=== PATIENT | female | born 1970 | race African-American/Black ===

== ENCOUNTER 2016-11-22 19:37 | Emergency (ER) | payer MEDICAID ==
[2016-11-22 19:39] VITALS: BP 181/97; PULSE 84; RESP 18; TEMP 98.4; O2SAT 99
--- NOTE | 2016-11-22 21:52 | PD ---
HPI Chief Complaint: Hypertension Time Seen by Provider: 21:12 Travel History International Travel<30 days: No Contact w/Intl Traveler<30days: No Traveled to known affect area: No History of Present Illness HPI The patient is a 46 year old female who presents to the [facility] emergency department with a history of reportedly not feeling well over the last couple of days, however this escalated yesterday. The patient reports that she felt lightheaded, nauseated, and had a near syncopal event. She reports that the symptoms were similar to when she was anemic with a previously. She went to the [facility] emergency department yesterday and was diagnosed with hypertension. She reports that she's given a prescription for amlodipine 5 mg. She has made an appointment with a new primary care physician, Dr. Richardson which is scheduled for next Tuesday. She reports that throughout the day today her blood pressure has continued to creep up. She reports that her symptoms have continued. She reports having pain in her left arm and neck with palpitations since yesterday. She has also been having nausea. She denies having any vomiting. She reports having a left lower quadrant abdominal pain that began since arriving in the emergency department earlier this evening. Otherwise on review of systems, the patient denies any recent fevers, cough, congestion, chest pain, shortness of breath, diarrhea, urinary symptoms, or neurologic symptoms. LMP: End October 2016. [facility] Past Medical History Narrative Medical The patient's past medical history is reportedly none. She was diagnosed as having hypertension yesterday in the emergency department. Cardiovascular Problems: Yes Diminished Hearing: No : 4 Para: 2 : 1 Past Surgical History Narrative Surgical The patient's past surgical history is reportedly none Social History Alcohol Use: No Tobacco Use: No Substance Use: No Allergies-Medications (Allergen,Severity, Reaction): Coded Allergies: Opioids - Morphine Analogues (Unverified Adverse Reaction, Mild, UPSET STOMACH, 11/22/16) Opioids-Meperidine and Related (Unverified Adverse Reaction, Mild, UPSET STOMACH, 11/22/16) Opioids-Methadone and Related (Unverified Adverse Reaction, Mild, UPSET STOMACH, 11/22/16) Reported Meds & Prescriptions Reported Meds & Active Scripts Active No Active Prescriptions or Reported Medications Narrative Medication Amlodipine 5 mg daily Review of Systems Except as stated in HPI: all other systems reviewed are Neg General / Constitutional: No: Fever Eyes: No: Visual changes HENT: Positive: Lightheadedness, No: Headaches, Rhinorrhea, Congestion Cardiovascular: No: Chest Pain or Discomfort, Dyspnea on exertion Respiratory: No: Cough, Shortness of Breath Gastrointestinal: Positive: Nausea, No: Vomiting, Diarrhea, Abdominal Pain, Changes in Bowel Habits, Indigestion, Loss of Appetite Genitourinary: No: Dysuria Musculoskeletal: No: Pain Skin: No Rash Neurologic: Positive: Dizziness, No: Weakness, Focal Abnormalities, Change in Mentation, Slurred Speech, Sensory Disturbance Psychiatric: No: Depression Endocrine: No: Polydipsia Hematologic/Lymphatic: No: Easy Bruising Physical Exam Narrative General: The patient is a well-developed well-nourished female in no acute distress. Head and Neck exam: Head is normocephalic atraumatic. Eyes: EOMI, pupils are equal round and reactive to light. Nose: Midline septum with pink mucous membranes Mouth: Dentition unremarkable. Moist mucus membranes. Posterior oropharynx is not erythematous. No tonsillar hypertrophy. Uvula midline. Airway patent. Neck: No palpable lymphadenopathy. No nuchal rigidity. No thyromegaly. Cardiovascular: Regular rate and rhythm without murmurs, gallops, or rubs. Lungs: Clear to auscultation bilaterally. No wheezes, rhonchi, or rales. Abdomen: Soft, without tenderness to palpation in all 4 quadrants of the abdomen. No guarding, rebound, or rigidity. Normal bowel sounds are audible. No tenderness on palpation of McBurney's point. Negative Lang's sign. Extremities: No clubbing, cyanosis, or edema. 2+ pulses in all 4 extremities. No calf tenderness on palpation. Back: No spinous process tenderness to palpation. No costovertebral angle tenderness to palpation. Neurologic Exam: Cranial nerves 2-12 were intact on exam. Strength is 5/5 in all 4 extremities. No sensory deficits noted. No dysdiadochokinesis. Good finger to nose and Heel to stephen bilaterally. Skin Exam: No rash noted. Intact skin that is warm and dry. Data Data Last Documented VS Vital Signs Date Time Temp Pulse Resp B/P (MAP) Pulse Ox O2 Delivery O2 Flow Rate FiO2 11/22/16 22:05 100 Room Air 11/22/16 19:39 98.4 84 18 Orders Orders Electrocardiogram (11/22/16 21:35) Complete Blood Count With Diff (11/22/16 21:35) Comprehensive Metabolic Panel (11/22/16 21:35) Creatine Kinase (Cpk) (11/22/16 21:35) Ckmb (Isoenzyme) Profile (11/22/16 21:35) Troponin I (11/22/16 21:35) B-Type Natriuretic Peptide (11/22/16 21:35) Prothrombin Time / Inr (Pt) (11/22/16 21:35) Act Partial Throm Time (Ptt) (11/22/16 21:35) Lipase (11/22/16 21:35) Urinalysis - C+S If Indicated (11/22/16 21:35) Magnesium (Mg) (11/22/16 21:35) Chest, Single Ap (11/22/16 21:35) Ct Brain W/O Iv Contrast(Rout) (11/22/16 21:35) Iv Access Insert/Monitor (11/22/16 21:35) Ecg Monitoring (11/22/16 21:35) Oximetry (11/22/16 21:35) Ed Urine Pregnancytest Poc (11/22/16 21:35) Ondansetron Inj (Zofran Inj) (11/22/16 22:00) Sodium Chlorid 0.9% 500 Ml Inj (Ns 500 M (11/22/16 22:00) Clonidine (Catapres) (11/22/16 22:00) CKMB (11/22/16 21:42) CKMB% (11/22/16 21:42) Ed Discharge Order (11/22/16 23:27) Labs Laboratory Tests Test 11/22/16 21:42 White Blood Count 5.7 TH/MM3 Red Blood Count 4.82 MIL/MM3 Hemoglobin 14.8 GM/DL Hematocrit 43.1 % Mean Corpuscular Volume 89.6 FL Mean Corpuscular Hemoglobin 30.7 PG Mean Corpuscular Hemoglobin Concent 34.3 % Red Cell Distribution Width 13.8 % Platelet Count 211 TH/MM3 Mean Platelet Volume 9.6 FL Neutrophils (%) (Auto) 55.8 % Lymphocytes (%) (Auto) 32.6 % Monocytes (%) (Auto) 8.6 % Eosinophils (%) (Auto) 2.3 % Basophils (%) (Auto) 0.7 % Neutrophils # (Auto) 3.2 TH/MM3 Lymphocytes # (Auto) 1.9 TH/MM3 Monocytes # (Auto) 0.5 TH/MM3 Eosinophils # (Auto) 0.1 TH/MM3 Basophils # (Auto) 0.0 TH/MM3 CBC Comment DIFF FINAL Differential Comment Prothrombin Time 10.3 SEC Prothromb Time International Ratio 0.9 RATIO Activated Partial Thromboplast Time 25.9 SEC Blood Urea Nitrogen 6 MG/DL Creatinine 0.78 MG/DL Random Glucose 91 MG/DL Total Protein 8.2 GM/DL Albumin 3.7 GM/DL Calcium Level 9.2 MG/DL Magnesium Level 2.4 MG/DL Alkaline Phosphatase 92 U/L Aspartate Amino Transf (AST/SGOT) 27 U/L Alanine Aminotransferase (ALT/SGPT) 41 U/L Total Bilirubin 0.4 MG/DL Sodium Level 134 MEQ/L Potassium Level 3.9 MEQ/L Chloride Level 103 MEQ/L Carbon Dioxide Level 23.5 MEQ/L Anion Gap 8 MEQ/L Estimat Glomerular Filtration Rate 96 ML/MIN Total Creatine Kinase 184 U/L Creatine Kinase MB 1.4 NG/ML Troponin I LESS THAN 0.02 NG/ML B-Type Natriuretic Peptide LESS THAN 2 PG/ML Lipase 152 U/L MDM Medical Decision Making Medical Screen Exam Complete: Yes Emergency Medical Condition: Yes Medical Record Reviewed: Yes Interpretation(s) Last Impressions Head CT 11/22/162134 Signed Impressions: Service Date/Time: Tuesday, November 22, 2016 21:56 - CONCLUSION: Normal examination. Germain Nuenz MD Chest X-Ray 11/22/162134 Signed Impressions: Service Date/Time: Tuesday, November 22, 2016 21:38 - CONCLUSION: Normal examination. No significant change has occurred. Germain Nunez MD Differential Diagnosis Acute coronary syndrome, versus electrolyte arrangements, versus viral syndrome , versus uncontrolled hypertension Narrative Course During the course of the patients emergency department visit, the patients history, examination, and differential diagnosis were reviewed with the patient. The patient had IV access obtained and blood work sent for analysis. The patient was placed on a cardiac catheterization technologist with oximetry and blood pressure monitoring. An ECG was done on arrival. The patient's ECG shows a sinus rhythm heart rate of 68, nonspecific T-wave abnormalities, T waves are inverted in lead 2, 3, aVF, 3, V4, V5, V6. The patient was initially provided normal saline a 500 mL bolus 1, Zofran 4 mg IV. The patient was given clonidine 0.1 by mouth times one in her blood pressure continued to be elevated at 178 of 113. The patients laboratory studies were reviewed and remarkable for a CBC that is unremarkable, CMP is remarkable for sodium of 134, BUN 6, cardiac enzymes within normal limits, BNP 2, lipase 152, PT PTT within normal limits. Radiology studies were reviewed and remarkable for a chest x-ray that shows no acute cardiopulmonary disease. CT scan of the brain showed no acute abnormality. The patient was instructed to increase the amlodipine to 10 mg a day. The patient is instructed regarding the importance of close follow-up with her new primary care physician on Tuesday. The patient is resting comfortably and feels better, is alert and in no distress. The patients results and examination findings were discussed with the patient. The repeat examination is unremarkable and benign. The history, exam, diagnostic testing, and current condition do not suggest any significant pathology to warrant further testing, continued ED treatment, admission, or surgical evaluation at this point. The vital signs have been stable. The patient does not have uncontrollable pain, intractable vomiting, or other significant symptoms. The patient's condition is stable and appropriate for discharge. The patient will pursue further outpatient evaluation with a primary care physician or other designated or consulting physician as indicated in the discharge instructions. The patient expressed understanding and was agreeable with this plan. Diagnosis Primary Impression: Hypertension Qualified Codes: I10 - Essential (primary) hypertension Referrals: Primary Care Physician 1 week Patient Instructions: General Instructions, Hypertension (ED) Med/Other Pt SpecificInfo: Existing Med Changed (increased amlodipine to 10 mg daily) Scripts No Active Prescriptions or Reported Meds Disposition: DISCHARGE HOME Condition: Stable Jada Navarrete MD Nov 22, 2016 21:52
--- NOTE | 2016-11-22 21:57 | RADRPT ---
EXAM DATE/TIME: 11/22/2016 21:38 [facility] COMPARISON: CHEST SINGLE AP, May 04, 2013, 16:31. INDICATIONS : Short of breath MEDICAL HISTORY : None. SURGICAL HISTORY : None. ENCOUNTER: Initial ACUITY: 2 days PAIN SCORE: 0/10 LOCATION: chest FINDINGS: A single view of the chest demonstrates the lungs to be symmetrically aerated without evidence of mas s, infiltrate or effusion. The cardiomediastinal contours are unremarkable. Osseous structures are intact. CONCLUSION: Normal examination. No significant change has occurred. Germain Nunez MD on November 22, 2016 at 21:55 Board Certified Radiologist. This report was verified electronically.
[2016-11-22] MEDS ORDERED: SODIUM CHLORID 0.9% 500 ML INJ 500 ML IV ONE (22:00)
[2016-11-22] MEDS ORDERED: ONDANSETRON HCL 4 MG/2 ML VIAL IV PUSH ONE (22:00)
[2016-11-22] MEDS ORDERED: cloNIDine HCL 0.1 MG TAB PO ONE (22:00)
[2016-11-22 22:04] LABS: AUTOMATED NEUTROPHIL # 3.2 TH/MM3 (1.8-7.7); BASOPHIL % 0.7 % (0.0-2.0); EOSINOPHIL # 0.1 TH/MM3 (0-0.4); EOSINOPHIL % 2.3 % (0.0-4.0); HEMATOCRIT 43.1 % (35.0-46.0); HEMO FLAGS DIFF FINAL; LYMPH % 32.6 % (9.0-44.0); LYMPHOCYTE # 1.9 TH/MM3 (1.0-4.8); MEAN CELL VOLUME 89.6 FL (80.0-100.0); MEAN CORPUSCULAR HEMOGLOBIN 30.7 PG (27.0-34.0); MEAN CORPUSCULAR HGB CONC 34.3 % (32.0-36.0); MONO % 8.6 % (0.0-8.0); NEUT % 55.8 % (16.0-70.0); PLATELET COUNT 211 TH/MM3 (150-450); RED BLOOD COUNT 4.82 MIL/MM3 (4.00-5.30); RED CELL DISTRIBUTION WIDTH 13.8 % (11.6-17.2); WHITE BLOOD COUNT 5.7 TH/MM3 (4.0-11.0)
[2016-11-22 22:05] VITALS: O2SAT 100
--- NOTE | 2016-11-22 22:06 | RADRPT ---
EXAM DATE/TIME: 11/22/2016 21:56 [facility] COMPARISON: No previous studies available for comparison. INDICATIONS : Dizziness. RADIATION DOSE: 35.73 CTDIvol (mGy) MEDICAL HISTORY : Cardiovascular disease. SURGICAL HISTORY : None. ENCOUNTER: Initial ACUITY: 1 day PAIN SCALE: 0/10 LOCATION: cranial TECHNIQUE: Multiple contiguous axial images were obtained of the head. Using automated exposure control and adj ustment of the mA and/or kV according to patient size, radiation dose was kept as low as reasonably a chievable to obtain optimal diagnostic quality images. DICOM format image data is available electro nically for review and comparison. FINDINGS: CEREBRUM: The ventricles are normal for age. No evidence of midline shift, mass lesion, hemorrhage or acute in farction. No extra-axial fluid collections are seen. POSTERIOR FOSSA: The cerebellum and brainstem are intact. The 4th ventricle is midline. The cerebellopontine angle i s unremarkable. EXTRACRANIAL: The visualized portion of the orbits is intact. SKULL: The calvaria is intact. No evidence of skull fracture. CONCLUSION: Normal examination. Germain Nunez MD on November 22, 2016 at 22:04 Board Certified Radiologist. This report was verified electronically.
[2016-11-22 22:21] LABS: ANION GAP 8 MEQ/L (5-15); AST (GOT) 27 U/L (15-37); BICARBONATE 23.5 MEQ/L (21.0-32.0); BLOOD UREA NITROGEN 6 MG/DL (7-18); CHLORIDE 103 MEQ/L (98-107); GLOMERULAR FILTRATION RATE 96 ML/MIN (>89); MAGNESIUM 2.4 MG/DL (1.5-2.5); POTASSIUM 3.9 MEQ/L (3.5-5.1); SODIUM (NA) 134 MEQ/L (136-145)
[2016-11-22 22:25] LABS: APTT (PATIENT) 25.9 SEC (24.3-30.1); INTERNATIONAL NORMALIZED RATIO 0.9 RATIO; PROTHROMBIN TIME - PATIENT 10.3 SEC (9.8-11.6)
[2016-11-22 22:28] LABS: ALKALINE PHOSPHATASE 92 U/L (45-117); ALT (GPT) 41 U/L (10-53); CREATINE KINASE 184 U/L (26-192); TOTAL BILIRUBIN ADULT 0.4 MG/DL (0.2-1.0)
[2016-11-22 22:40] LABS: CKMB 1.4 NG/ML (0.5-3.6)
[2016-11-22 23:31] VITALS: BP 156/93; PULSE 78; RESP 18; O2SAT 99
--- NOTE | 2016-11-23 21:46 | EKG ---
Date Performed: 11/22/2016 Time Performed: 21:00:50 PTAGE: 46 years EKG: Sinus rhythm NONSPECIFIC T-WAVE ABNORMALITY ABNORMAL ECG NO PREVIOUS TRACING DOCTOR: Brennan Basurto Interpretating Date/Time 11/23/2016 21:45:59
== END 2016-11-23 00:03 | disposition home or self-care (01) ==
LOC: NEPC 19:37
DX: I10 Essential (primary) hypertension (principal); R42 Dizziness and giddiness; R00.2 Palpitations; M79.602 Pain in left arm; R10.32 Left lower quadrant pain; R94.31 Abnormal electrocardiogram [ECG] [EKG]
CPT/HCPCS: 70450; 71010; 80053; 82550; 82552; 83690; 83735; 83880; 84484; 84703; 85025; 85610; 85730; 93005; 96361; 96374; 99285; J2405; J7040